=== PATIENT | male | born 1995 | race Caucasian/White ===

== ENCOUNTER 2018-12-09 21:34 | Emergency (ER) | payer OTHER ==
[2018-12-09 21:46] VITALS: BP 135/85; PULSE 87; TEMP 98.2; BMI 17.7
--- NOTE | 2018-12-09 21:48 | PDOC ---
Rapid Medical Evaluation Time Seen by Provider: 12/09/18 21:43 Medical Evaluation: Allergies Allergy/AdvReac Type Severity Reaction Status Date / Time No Known Allergies Allergy Verified 05/20/14 01:00 12/09/18 21:43 The patient presents to the ER with lower extremity pain and redness for two days. States he thinks it started out as a bug bite and progressively got worse over the past two days Exam: redness and warmth to the L posterior calf Orders: nothing Pt to proceed to the ER for further evaluation Discharge Disposition - Diagnosis Cellulitis - Referrals - Patient Instructions - Post Discharge Activity
--- NOTE | 2018-12-09 22:46 | PDOC ---
History of Present Illness - General Chief Complaint: Edema Stated Complaint: LEG PAIN Time Seen by Provider: 12/09/18 21:43 - History of Present Illness Initial Comments: 12/09/18 22:42 23-year-old male with a past medical history significant for asthma presents for evaluation of the left leg discomfort and redness 2 days no systemic symptoms. 12/09/18 22:43 Of note he also has left groin pain after moving some boxes.About 3 days ago Past History - Past Medical History Allergies/Adverse Reactions: Allergies Allergy/AdvReac Type Severity Reaction Status Date / Time shellfish derived Allergy Verified 12/09/18 21:46 Home Medications: Ambulatory Orders Albuterol Sulfate Inhaler - [Ventolin HFA Inhaler -] 2 inh PO Q4H #1 inh Fluticasone Propionate [Flovent Hfa] 10.6 gm IH DAILY #1 aer.w.adap 05/20/14 Montelukast Na [Singulair -] 10 mg PO HS #30 tablet 05/20/14 Cephalexin [Keflex] 500 mg PO QID #40 capsule 12/09/18 Sulfamethoxazole/Trimethoprim [Bactrim Ds -] 1 tab PO BID #14 tablet 12/09/18 Asthma: Yes COPD: No - Immunization History Immunization Up to Date: Yes - Suicide/Smoking/Psychosocial Hx Smoking History: Never smoked Hx Alcohol Use: No Substance Use Type: None Review of Systems - Review of Systems Constitutional: No: Fever Musculoskeletal: Yes: Muscle Pain Integumentary: Yes: Erythema *Physical Exam - Vital Signs Last Vital Signs Temp Pulse Resp BP Pulse Ox 98.2 F 87 18 135/85 98 12/09/18 21:43 12/09/18 21:43 12/09/18 21:43 12/09/18 21:43 12/09/18 21:43 - Physical Exam Comments: 12/09/18 22:42 Left lower extremity mildly erythemic with minimal induration about the medial aspect of the left gastroc about 7 cm in length by about 4 cm in width at its widest point. Thigh and calf are otherwise soft and nontender there are no gross sensory motor deficits he is neurovascularly intact. There is mild discomfort at the abductors of the left hip 5 out of 5 strength. *DC/Admit/Observation/Transfer Diagnosis at time of Disposition: Cellulitis, Strain of hip - Discharge Dispostion Disposition: HOME Condition at time of disposition: Stable Decision to Admit order: No - Prescriptions Prescriptions: Cephalexin [Keflex] 500 mg PO QID #40 capsule Sulfamethoxazole/Trimethoprim [Bactrim Ds -] 1 tab PO BID #14 tablet - Referrals Referrals: Omar Rojo DO [Staff Physician] - Makeda Johnson MD [Staff Physician] - - Patient Instructions Printed Discharge Instructions: Cellulitis, DI for Cellulitis -- Adult, Muscle Strain, Groin Strain Additional Instructions: Yaa take the antibiotics as directed. Return to the emergency room for worsening symptoms. He may take Tylenol and Motrin as directed here hip pain. You should follow-up with internal medicine for further evaluation and treatment of your cellulitis and orthopedic surgery follow-up for your groin pain - Post Discharge Activity
== END 2018-12-09 22:51 | disposition home or self-care (01) ==
LOC: JERFT 21:34
DX: L03.116 Cellulitis of left lower limb (principal); S39.013A Strain of muscle, fascia and tendon of pelvis, initial encounter; X50.0XXA Overexertion from strenuous movement or load, initial encounter; Y93.89 Activity, other specified; Y92.89 Other specified places as the place of occurrence of the external cause; Y99.8 Other external cause status
CPT/HCPCS: 99282-25